=== PATIENT | female | born 1995 | race Caucasian/White ===

== ENCOUNTER 2018-03-29 08:29 | Emergency (ER) | payer OTHER, MEDICAID ==
[~2018-03-29] VITALS: Ht 167.6 cm; Wt 110.7 kg
[2018-03-29 09:26] LABS: ABSOLUTE BASOPHILS 0.1 thou/uL (0.0-0.2); ABSOLUTE EOSINOPHILS 0.1 thou/uL (0.0-0.7); ABSOLUTE LYMPHOCYTES 1.8 thou/uL (0.8-5.3); ABSOLUTE MONOCYTES 0.4 thou/uL (0.0-1.2); ABSOLUTE NEUTROPHILS 4.9 thou/uL (1.6-8.1); BASOPHILS 0.9 %; EOSINOPHILS 1.3 %; HEMATOCRIT 37.6 % (37.0-47.0); HEMOGLOBIN 12.3 gm/dL (12.0-15.0); LYMPHOCYTES 24.3 %; MCH 27.2 pg (26.0-34.0); MCHC 32.7 g/dL (28.0-37.0); MCV 83.2 fL (80.0-100.0); MONOCYTES 5.8 %; MPV 10.3 fl. (7.2-11.1); NUCLEATED RBCS 0 /100WBC; PLATELET COUNT* 260 thou/uL (150-400); POLYS 67.7 %; RBC 4.53 mil/uL (4.20-5.00); RDW-CV 14.7 % (10.5-14.5); WBC 7.3 thou/uL (4.0-11.0)
[2018-03-29 09:30] LABS: URINE BILIRUBIN NEGATIVE (Negative); URINE BLOOD NEGATIVE (Negative); URINE CLARITY CLEAR; URINE COLOR YELLOW; URINE GLUCOSE-RANDOM NEGATIVE (Negative); URINE KETONES NEGATIVE (Negative); URINE LEUKOCYTES-REFLEX TRACE (Negative); URINE NITRITE-REFLEX NEGATIVE (Negative); URINE PROTEIN NEGATIVE (Negative); URINE SPECIFIC GRAVITY 1.015 (1.005-1.030); URINE UROBILINOGEN 0.2 E.U./dl (0.2-1.0)
[2018-03-29 09:33] LABS: ANION GAP 6 mmol/L (7-16); BUN 16 mg/dL (7-18); CHLORIDE 107 mmol/L (98-107); CO2 28 mmol/L (21-32); GLUCOSE 105 mg/dL (70-99); POTASSIUM 3.6 mmol/L (3.5-5.1); SODIUM 141 mmol/L (136-145)
[2018-03-29 09:37] LABS: BACTERIA-REFLEX 1-9 Few /HPF (None Seen); SQUAMOUS 4-10 Moderate /LPF (0-3); URINE RBC 0-2 Rare /HPF (0-2); URINE WBC-REFLEX 0-5 Rare /HPF (0-5)
[2018-03-29 09:38] LABS: CASTS None Seen /LPF (None Seen); CRYSTALS None Seen /LPF (None Seen); MUCUS 0-3 Light strn/LPF (None Seen)
[2018-03-29 09:40] LABS: ALBUMIN 3.4 g/dL (3.4-5.0); ALKALINE PHOSPHATASE 76 U/L (46-116); SGOT 12 U/L (15-37); SGPT 21 U/L (30-65); TOTAL BILIRUBIN 0.5 mg/dL (<0.1-1.0); TOTAL PROTEIN 7.7 g/dL (6.4-8.2); TROPONIN-I LEVEL <0.06 ng/mL (<0.06)
[2018-03-29] MEDS ORDERED: IBUPROFEN 800800 MG PO (11:51)
[2018-03-29 11:56] VITALS: BP 109/57
--- NOTE | 2018-03-30 09:44 | EKG ---
[place] [address] ELECTROCARDIOGRAM REPORT Name: DINA GAMBINO [id number] Admission: 03/29/18 Attend Phys: Discharge: 03/29/18 Date of : [birth year] Report #: [id number] THIS REPORT FOR: //name// [facility] ED Test Date: 2018-03-29 Test Time: 08:36:02 Pat Name: DINA MAKI Department: Room: Gender: F [employer]: RUBY : 1995 Requested By: Laura Kapadia Order Number: [id number] MD: Sukhdeep Tineo Measurements Intervals Baker Rate: 76 P: 42 IA: 183 QRS: 56 QRSD: 80 T: 34 QT: 352 QTc: 396 Interpretive Statements Sinus arrhythmia Baseline wander in lead(s) V5 No previous ECG available for comparison Electronically Signed On 03-30-2018 9:44:36 CDT by Sukhdeep Tineo [email or web address] <ELECTRONICALLY SIGNED> By: Sukhdeep Tineo MD, [facility] 03/30/18 0944 [id number] 08 Sukhdeep Tineo MD, FACC /EPI
== END 2018-03-29 11:57 | disposition home or self-care (01) ==
LOC: M.ERS 08:29
PROVIDERS: Personal Emergency Response Attendant
DX: R07.89 Other chest pain (principal); Z88.1 Allergy status to other antibiotic agents

== ENCOUNTER 2019-04-23 16:18 | Emergency (ER) | payer OTHER, MEDICAID ==
[~2019-04-23] VITALS: Ht 165.1 cm; Wt 95.3 kg
[~2019-04-23 16:18] MED LIST: IBUPROFEN 800800 MG PO
[2019-04-23] MEDS ORDERED: TAZAROTENE TP (16:32)
[2019-04-23] MEDS ORDERED: KETOCONAZOLE15 GM TOP (16:50)
[2019-04-23 17:29] VITALS: BP 125/70
== END 2019-04-23 17:29 | disposition home or self-care (01) ==
LOC: M.ERS 16:18
DX: B36.0 Pityriasis versicolor (principal); Z88.1 Allergy status to other antibiotic agents